=== PATIENT | female | born 1980 ===

== ENCOUNTER 2025-07-08 05:23 | Day surgery (SDC) | payer OTHER ==
[2025-07-01 10:02] LABS: BASO % 0.5 % (0.1-1.2); EOS # 0.29 (0.04-0.54); EOS % 3.5 % (0.7-7.0); LYMPH # 2.59 (1.18-3.74); LYMPH % 31.3 % (19.3-53.1); MEAN PLATELET VOLUME 8.90 fl (9.4-12.4); MONO # 0.66 (0.24-0.82); MONO % 8.0 % (4.7-12.5); NEUT # 4.66 (1.56-6.13); NEUT % 56.3 % (34.0-71.1); RED CELL DISTRIBUTION WIDTH 13.8 % (11.6-14.4)
[2025-07-01 10:16] VITALS: BP 138/89
[2025-07-01 10:16] LABS: URINE APPEARANCE Clear; URINE BILIRRUBIN Negative (NEGATIVE); URINE BLOOD Trace; URINE COLOR Yellow; URINE GLUCOSE Negative (NEGATIVE); URINE KETONE Trace (NEGATIVE); URINE LEUKOCYTE Negative; URINE NITRATE Negative; URINE PROTEIN Trace (NEGATIVE); URINE UROBILINOGEN 0.2 E.U./dl
[2025-07-01 10:19] LABS: URINE BACTERIA 13.1 uL (0.0-1933); URINE EPITHELIAL CELLS 5.5 uL (0.0-38.8); URINE RBC 31.5 uL (0.0-20.8); URINE WBC 3.5 uL (0.0-23.2)
[2025-07-01 10:20] LABS: URINE CAST 0.00 uL (0.0-1.40)
[2025-07-01 10:44] LABS: INR 1.0
[2025-07-01 11:13] LABS: BUN CREA RATIO 18.0 (7.0-25.0); CREATININE SERUM 0.79 mg/dL (0.55-1.02); GFR 78.01; GLUCOSE FASTING 85.0 mg/dL (65-100); OSMOLALITY SERUM 287.0 MOSM/KG (275-295)
[~2025-07-08] VITALS: Ht 170.2 cm; Wt 103.4 kg
[~2025-07-08 05:23] MED LIST: LOSARTAN POTAS100 MG PO
[2025-07-08] MEDS ORDERED: ENOXAPARIN SODIUM 40 MG/0.4 ML SYRINGE SUBCUTANEO ONE (11:00)
[2025-07-08] MEDS ORDERED: BUPIVACAINE HCL 30 ML VIAL IJ ONE (11:00)
[2025-07-08] MEDS ORDERED: METRONIDAZOLE/SODIUM CHLORIDE 500 MG/100 ML PIGGYBACK IV ONE (11:00)
[2025-07-08] MEDS ORDERED: CEFTRIAXONE SODIUM 2,000 MG VIAL IV ONE (11:00)
[2025-07-08] MEDS ORDERED: SUGAMMADEX SODIUM 200 MG/2 ML VIAL IV ONE (12:00)
[2025-07-08] MEDS ORDERED: PERCOCET 5-3251 EACH PO (13:09)
[2025-07-08] MEDS ORDERED: MORPHINE SULFATE 4 MG/ML VIAL IV ONE (13:20)
== END 2025-07-08 16:50 | disposition home or self-care (01) ==
LOC: CIR.AMB 05:23
PROVIDERS: ATTEND Surgery
DX: K80.10 Calculus of gallbladder with chronic cholecystitis without obstruction (principal); Z91.013 Allergy to seafood